=== PATIENT | female | born 1995 | race Caucasian/White ===

== ENCOUNTER → 2018-10-18 08:57 | Outpatient (CLI) | payer OTHER, SELFPAY ==
[2018-10-18 14:52] LABS: Anion Gap 8 (5-15); BUN 11 mg/dL (7-18); Calcium,Total 9.2 mg/dL (8.5-10.1); Chloride 110 mmol/L (98-107); Cholesterol 148 mg/dL (200); Creatinine, Serum 0.84 mg/dL (0.55-1.02); EST Glomerular Filtration Rate 88 mL/min (>60); Est Glom Filt Rate - Afr Amer 107 mL/min (>60); Glucose 84 mg/dL (74-106); High Density Lipoprotein 64 mg/dL; Potassium 4.5 mmol/L (3.5-5.1); Sodium Level 141 mmol/L (136-145); Thyroid Stim Hormone (TSH) 1.51 uIU/mL (0.358-3.74); Triglycerides 56 mg/dL; Very Low Density Lipoprotein 11 mg/dL (5-40)
== END ==
PROVIDERS: Family Provider Family Medicine; PCP Family Medicine; Referring Provider Family Medicine; Visit Provider Family Medicine
DX: Z00.00 Encounter for general adult medical examination without abnormal findings (principal); F32.9 Major depressive disorder, single episode, unspecified
CPT/HCPCS: 36415; 80048; 80061; 84443

== ENCOUNTER → 2018-10-23 10:28 | Outpatient (CLI) | payer OTHER, SELFPAY ==
[2018-10-23 09:59] VITALS: BMI 21.2
[2018-10-23 12:23] LABS: HIV - WCH Non-Reactive (Nonreactive)
[2018-10-23 18:24] LABS: Chlamydia Trachomatis by PCR Negative (Negative); Neisserai gonorrhoeae by PCR Negative (Negative); Probe Check PASS; Sample Adequacy Control PASS; Specimen Processing Control PASS
[2018-10-25 01:43] LABS: Rapid Plasmin Reagin (RPR) NONREACTIVE (NONREACTIVE)
[2018-10-25 03:06] LABS: HCV Quant. RNA PCR HCV Not Detected IU/mL (.)
[2018-10-25 11:11] LABS: HSV 2 IgG < 0.91 index (0.00-0.90)
[2018-10-25 11:47] LABS: HPV Reflexed? NOT INDICATED
== END ==
PROVIDERS: Family Provider Family Medicine; PCP Family Medicine; Referring Provider Nurse Practitioner Women's Health; Visit Provider Nurse Practitioner Women's Health
DX: Z12.4 Encounter for screening for malignant neoplasm of cervix (principal); Z11.3 Encounter for screening for infections with a predominantly sexual mode of transmission
CPT/HCPCS: 36415; 86592; 86695; 86696; 86703; 87491; 87522; 87591; 87624; 88175; G0145

== ENCOUNTER → 2018-11-08 08:20 | Outpatient (CLI) | payer OTHER, SELFPAY ==
[2018-10-23 09:59] VITALS: BMI 21.2
--- NOTE | 2018-11-08 08:23 | US_ITS ---
STUDY: ULTRASOUND TRANSVAGINAL CLINICAL: Female, 23 years old. MA x-ray A TECHNIQUE: Transvaginal COMPARISON: None. FINDINGS: Normal uterine size measuring 11.4 x 6.3 x 3.4 cm cm in maximal craniocaudal dimension. It is retroverted in position. There are no myometrial masses. Normal endometrial thickness measuring 4 mm. There are no endometrial masses, and there is no fluid in the endometrial cavity. Normal uterine cervix. Normal right ovary, measuring 3.6 x 3.7 x 2.4 with multiple follicles the largest measures 1.8 x 1.5 cm. Normal left ovary, measuring 3.9 x 2.6 x 1.5 cm. There are multiple follicles without a dominant cyst. There is trace free fluid in the cul-de-sac. US/Pelvic (Non ) IMPRESSION: Negative study Electronically Signed: Mayi Fragoso, at 13:37 EDT Tel , Service support ,
--- NOTE | 2018-11-08 08:23 | US_ITS ---
STUDY: ULTRASOUND TRANSVAGINAL CLINICAL: Female, 23 years old. MA x-ray A TECHNIQUE: Transvaginal COMPARISON: None. FINDINGS: Normal uterine size measuring 11.4 x 6.3 x 3.4 cm cm in maximal craniocaudal dimension. It is retroverted in position. There are no myometrial masses. Normal endometrial thickness measuring 4 mm. There are no endometrial masses, and there is no fluid in the endometrial cavity. Normal uterine cervix. Normal right ovary, measuring 3.6 x 3.7 x 2.4 with multiple follicles the largest measures 1.8 x 1.5 cm. Normal left ovary, measuring 3.9 x 2.6 x 1.5 cm. There are multiple follicles without a dominant cyst. There is trace free fluid in the cul-de-sac. US/Transvaginal Non- IMPRESSION: Negative study Electronically Signed: Mayi Ferrerstanton, at 13:37 EDT Tel , Service support ,
== END ==
PROVIDERS: Family Provider Family Medicine; PCP Family Medicine; Referring Provider Nurse Practitioner Women's Health; Visit Provider Nurse Practitioner Women's Health
DX: R10.2 Pelvic and perineal pain (principal)
CPT/HCPCS: 76830; 76856; 93976

== ENCOUNTER → 2018-12-06 11:24 | Outpatient (CLI) | payer OTHER, SELFPAY ==
[2018-11-20 10:57] VITALS: BMI 21.2
[2018-12-06 13:43] LABS: HIV - WCH Non-Reactive (Nonreactive)
[2018-12-06 14:31] LABS: Neisserai gonorrhoeae by PCR Negative (Negative); Probe Check PASS; Sample Adequacy Control PASS; Specimen Processing Control PASS
[2018-12-08 17:13] LABS: HSV 2 IgG < 0.91 index (0.00-0.90)
[2018-12-14 09:27] LABS: Rapid Plasmin Reagin (RPR) NONREACTIVE (NONREACTIVE)
== END ==
LOC: MFPLAB 11:25
PROVIDERS: Family Provider Family Medicine; PCP Family Medicine; Referring Provider Family Medicine; Visit Provider Family Medicine
DX: A64 Unspecified sexually transmitted disease (principal)
CPT/HCPCS: 36415; 86592; 86695; 86696; 86703; 87591

== ENCOUNTER 2019-01-09 09:50 | Day surgery (SDC) | payer OTHER, SELFPAY ==
[2018-11-20 10:57] VITALS: BMI 21.2
[2018-12-31 09:05] VITALS: BMI 21.2
--- NOTE | 2019-01-08 22:15 | PCM.HPOB.BLA ---
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 Chief Complaint: pre op diagnostic lap,cystoscopy,hysteroscopy D&C Charge Entry Required: No Is patient in pain?: No Allergies acetaminophen [From Vicodin] Allergy (Mild, Verified 12/31/18 08:30) nausea, vomiting hydrocodone [From Vicodin] Allergy (Mild, Verified 12/31/18 08:30) nausea, vomiting Medications bupropion HCl XL 300 mg 24 hr tablet, extended release 300 mg PO QAM 10/23/18 [History Confirmed 12/31/18] medroxyprogesterone 150 mg/mL intramuscular suspension 150 mg IM [id number] 10/23/18 [History Confirmed 12/31/18] Is last menstrual period known: No Post menopausal: No Patient : No : No [facility] Medical History Depression with anxiety (Acute) HPV test positive (Acute) Family History Grandfather Diabetes Brain cancer Social History (Updated 12/31/18 @ 09:24 by Lila Almazan MD) Smoking Status: Never smoker alcohol intake: current alcohol intake frequency: holidays/special occasions only substance use type: does not use caffeine: No what type of physical activity do you participate in: yoga, other details: hiking frequency: 3-4 times per week seatbelt use: always do you feel safe at home: Yes additional social history: Patient works at [employer] pre op soap and folder: Details: BINA BERNAL is a 23 year old who presents for chronic pelvic pain. she has struggled with severe dysmenorrhea. she has failed treatment with an OCP, IUD, Depoprovera, and nuvaring. she has never had any significant pain improvement with hormonal therapy, she has not tried depot lupron in the past. her pain started only on cycles and now is almost daily. she denies any family history of endometriosis. mood symptoms are well controlled. Female Reproductive History Cycle Length: 21-35 Bleeding Duration: 7 Pregancy History 0 Elective abortions Hx Para Spontaneous abortions Hx # Term Pregnancies Ectopic pregnancies Hx # Pregnancies Multiple births # of living children ROS Const Constitutional: Denies fatigue, fever(s), headache(s), increased appetite, poor appetite, weight gain or weight loss Cardio Card: Denies chest pain Resp Resp: Denies cough or dyspnea GI GI: Reports as per HPI; denies abdominal pain, constipation, nausea or vomiting : Reports as per HPI; denies difficulty urinating, painful urination, nipple discharge, urinary frequency, urinary incontinence, urinary hesitancy, urinary urgency, vaginal discharge, vaginal dryness, vaginal odor or vaginal itching Skin Skin/Breast: Denies change in hair, breast lump, breast pain, breast skin changes or nipple discharge Exam Const General: cooperative, healthy appearing, comfortable, no acute distress, well developed Nutritional Appearance: average body habitus Orientation: alert HENMT Head: normal to inspection, normocephalic Neck Neck: normal visual inspection, trachea midline Thyroid: thyroid normal Resp Effort & Inspection: normal respiratory effort GI Inspection: normal to inspection, non-distended Palpation: soft, no hepatosplenomegaly General: bladder normal to palpation External Female Exam: normal external appearance, normal appearance of the urethra Urethra: normal appearance of the urethra, normal palpation, no discharge Speculum Exam - Vagina: normal appearance of the vagina, normal vaginal discharge Speculum Exam - Cervix: normal appearance of the cervix, nontender Bimanual Exam- Vagina & Uterus: normal bimanual exam, uterine size normal, bladder normal to palpation, uterine shape normal, No cervical tenderness, uterine mobility abnormal, uterine consistency normal, normal cervical palpation, uterus fixed (retroverted) Bimanual Exam- Adnexa, other: normal adnexae, adnexae mobile, no adnexal masses, pelvic support normal Pelvic Support: normal Skin General: no rashes or lesions noted Assessment & Plan Problems 1. Dysmenorrhea N94.6 2. Chronic pelvic pain in female R10.2; G89.29 d and c hysteroscopy cystoscopy diagnostic laparoscopy Plan discussed surgical risks including risks of anesthesia, infection, bleeding, injury to bowel, bladder or blood vessels, and patient wishes to proceed with surgery. Coding Level of Care Code No Charge Diagnoses Dysmenorrhea N94.6 Chronic pelvic pain in female R10.2; G89.29
[2019-01-09] VITALS (8 sets, daily range): BP systolic 84–130; BP diastolic 63–89; PULSE 53–78; RESP 16–18; TEMP 36.3–36.8; O2SAT 97–100; BMI 19.5
[2019-01-09 10:21] LABS: Internal QC Validated? YES +Cl - CLEAR BKGD; Pregnancy, Urine Negative Negative
[2019-01-09 10:34] LABS: Hematocrit 44.9 % (37-47); Hemoglobin 14.2 g/dL (12.0-15.0); Mean Corp Hgb Conc 31.6 g/dL (32-36); Mean Corpuscular Hgb 28.6 pg (27.0-32.0); Mean Corpuscular Volume 90.5 fL (81-99); Mean Platelet Vol. 11.4 fl (6.2-12.0); Platelet Count 211 K/mm3 (150-450); RBC Distribution Width CV 12.9 % (11.6-14.6); RBC Distribution Width SD 42.6 fl (35.1-43.9); Red Blood Count 4.96 M/mm3 (4.2-5.4); White Blood Count 4.7 K/mm3 (4.4-11.0)
[2019-01-09] MEDS: Lactated Ringers 1,000 ML 125 ML IV ×2 (10:41→12:30)
[2019-01-09 10:42] LABS: Prothrombin Time (Protime)PT. 12.8 SECONDS (11.7-14.9)
[2019-01-09 10:43] LABS: Partial Thromboplast Time 30.5 Seconds (24.1-36.2)
[2019-01-09 10:50] LABS: AST(SGOT) 12 U/L (15-37); Alanine Aminotransfer ALT/SGPT 22 U/L (13-56); Albumin, Serum 4.1 g/dL (3.2-5.0); Alkaline Phosphatase 70 U/L (45-117); Bilirubin, Direct 0.14 mg/dL (0.00-0.30); Globulin 3.5 g/dL (2.2-4.2); Protein, Total 7.6 g/dL (6.4-8.2)
--- NOTE | 2019-01-09 11:00 | EMB_PTH ---
PATIENT: BINA BERNAL [place] [facility] [place][id number] AGE/SX: 23/F ROOM: RE01/09/[address]: Dr. Lila Almazan MD : 1995 BED: DIS: 01/09/2019 SPEC #: [id number] RECD: 01/09/19 16:37 STATUS: FEDERICO FELISA #: [id number] FAITH: 01/09/19 11:[address]: Lila Almazan DEPT: SURGICAL PATHOLOGY RECD BY: Ernesto Cope ENTERED: 01/10/19 10:01 SP TYPE: ENDOM BX/C OTHR DR: Dr. Tate Garcia MD Tissues: Endometrium, NOS Procedures: Surgery Specimen Level IV HEADER OPERATION: Laparoscopic ablation of endometriosis, chromotubation, hysteroscopy, D & C PRE-OP DIAGNOSIS: Dysmenorrhea N94.6, chronic pelvic pain R10.2, G89.29 TISSUE SUBMITTED: Endometrial curettings MICROSCOPIC DIAGNOSIS Endometrium, curettings: Weakly proliferative endometrium. Benign desquamative squamous epithelial cells. AM:godwin 01/14/19 COMMENT Case has been reviewed in consultation with Dr. Castrejon who concurs with the above diagnosis. IDC:WILLI MICROSCOPIC DESCRIPTION Slides are reviewed. GROSS DESCRIPTION Received in fixative is one container labeled with the patient's name and designated endometrial curettings. The specimen consists of multiple fragments of hemorrhagic soft tissue that in aggregate measure 2.5 x 2 x 0.2 cm. The entire specimen is submitted in one cassette. / SJ:godwin 01/10/19 TC:5 CPT: 49778
--- NOTE | 2019-01-09 13:02 | PCM.OPRPT ---
Problem List (1) Depression with anxiety Status: Acute (2) Dysmenorrhea Status: Acute (3) Positive test for human papillomavirus (HPV) Status: Acute (4) Chronic pelvic pain in female Status: Chronic Comment: d and c hysteroscopy cystoscopy diagnostic laparoscopy Report of Operation Date of Procedure: 01/09/19 Pre-Operative Diagnosis: chronic pelvic pain Post-Operative Diagnosis: same plus endometriosis Surgery/Procedure Performed:: Diagnostic laparoscopy with ablation of endometriosis chromotubation cystoscopy D&C hysteroscopy Description of Surgical Findings:: Endometriosis implants mostly chronic and old in the posterior cul-de-sac bilateral ovarian fossa right anterior cul-de-sac right and left fallopian tubes left pelvic sidewall with sigmoid colon to left pelvic sidewall adhesions physician allergist immunologist: Beulah Flores Type of Anesthesia:: General Special Medications: none Specimen's removed: emc Drains: kerr Estimated Blood Loss (mL): 25 Fluids Replaced: crystalloid Description of Procedure: Was taken the operating room and placed under general anesthesia was prepped and draped in the normal sterile fashion in dorsolithotomy position. Uterine manipulator was placed inside the uterus and umbilicus was injected with 1% lidocaine and 5 mm incision was made varies needle entered into the abdomen confirmed the intra-abdominal and abdomen was inflated with CO2 gas. Right and left lower quadrant ports were placed under direct visualization after intra-abdominal pathology was confirmed. Please see operative findings for additional details. Endometriosis implants were seen and were each progressively ablated using monopolar energy. The sigmoid colon to left pelvic sidewall adhesions were taken down sharply and with electrocautery using the monopolar scissors and blunt dissection. This restored normal anatomy and no other gross abnormality's were seen. Aries was placed over all these areas and excellent hemostasis was noted. Chromotubation was then performed to evaluate fallopian tube patency in both were seen to be patent and open no significant abnormalities. Attention was then paid to the vaginal portion of the procedure. All port sites were closed after all instruments removed from the abdomen the abdomen is desufflated of air. Hysteroscopy was performed and the lining of the uterus visualized and within normal limits. Sharp curettage was performed and specimen sent to pathology. Monsel's paste was placed on the anterior lip of the cervix to obtain excellent hemostasis. Cystoscopy was then performed by filling the bladder with sterile water and bilateral ureteral spray was noted no significant abnormalities were seen to the bladder lining or trauma or irregularities. All instruments removed from the patient and patient was awoken taken recovery in stable condition. Grafts/Implants Used: none - Complications none Multi Select Codes - Urinary/Genital Urinary/Genital CPT Codes: 89218 Cystoscopy, 18444 Reopen fallopian tube, 62362 Hysteroscopy, diagnostic, 77674 Lysis of adhesions, 82489 Ablation endometriosis
[2019-01-09] MEDS: Cefazolin 2 GM in 0.9% Normal Saline 100 ML IV (13:09)
[2019-01-09] MEDS: Bupivacaine 0.25% 30 ML Vial (14:30)
[2019-01-09] MEDS: FERRIC SUBSULFATE 8 GM SOLN (14:53)
--- NOTE | 2019-01-09 15:03 | DCINST_ITS ---
Discharge Diet: No Restrictions - Increase fluid intake for the next 48 hours. Discharge Activity: Return to Normal Activity, May Drive - when you are no longer taking narcotic pain medications., May Shower, May Take a Tub Bath - in 7 days May resume sexual activity in: 2 weeks Weight Bearing Status: Full weight bearing Additional Activity Instructions:: Ambulate often the next week after surgery. Nothing in the vagina for 5 days. Call your doctor if your incision/area has: Continuous Slow Oozing, Sudden Increased Bleeding, Increased Pain/ Swelling, Increased Redness, Foul Smelling Discharge Call your doctor if you observe: Fever of 101 or Higher Instructions: What Is Endometriosis?, Treating Endometriosis, Living with Endometriosis, Laparoscopic Treatment of Endometriosis Allergies/Adverse Reactions: Allergies hydrocodone [From Vicodin] Allergy (Mild, Verified 01/02/19 09:15) nausea, vomiting Medications to take at Discharge bupropion HCl XL 300 mg 24 hr tablet, extended release 300 mg PO QAM 10/23/18 Primary Care Physician: Tate Gacria MD [Primary Care Provider] - Test Results: Test results from this visit will be discussed in further detail at your follow- up appointment, if applicable. Please Follow Up With: Lila Almazan MD - [phone]
== END 2019-01-09 17:47 | disposition home or self-care (01) ==
LOC: SDC 10:00 → AC 10:00
PROVIDERS: Anesthesiology; Family Provider Family Medicine; PCP Family Medicine; Referring Provider Obstetrics & Gynecology; Visit Provider Obstetrics & Gynecology
PROC: (CPT 49320; principal; 2019-01-09 10:45)
PROC: 0UDB8ZZ Extraction of Endometrium, Via Natural or Artificial Opening Endoscopic (ICD-10-PCS; CPT 58558; 2019-01-09 10:45)
PROC: 0TJB8ZZ Inspection of Bladder, Via Natural or Artificial Opening Endoscopic (ICD-10-PCS; CPT 52000; 2019-01-09 10:45)
DX: N80.1 Endometriosis of ovary (principal); N80.3 Endometriosis of pelvic peritoneum; N94.6 Dysmenorrhea, unspecified; R10.2 Pelvic and perineal pain; G89.29 Other chronic pain; F32.9 Major depressive disorder, single episode, unspecified; F41.9 Anxiety disorder, unspecified; Z79.899 Other long term (current) drug therapy; Z88.5 Allergy status to narcotic agent
CPT/HCPCS: 58350; 58558; 58662; 36415; 80076; 81025; 85027; 85610; 85730; 86850; 86900; 86901; 88305; J7120; J2405; Q9968

== ENCOUNTER → 2019-03-03 15:24 | Outpatient (CLI) | payer OTHER, SELFPAY ==
[2019-02-25 11:27] VITALS: BMI 19.5
[2019-03-03 17:35] LABS: Absolute Lymphocyte Count 1.39 X10^3/uL (0.83-4.51); Absolute Neutrophil Count 4.5 X10^3/uL (2.0-7.7); Basophil# 0.03 X10^3/uL; Basophil% 0.5 % (0-1); Eosinophil# 0.05 X10^3/uL; Eosinophils% 0.8 % (0-5); Hematocrit 41.5 % (37-47); Hemoglobin 12.9 g/dL (12.0-15.0); Lymphocyte # 1.39 X10^3/ul (4.0); Lymphocyte % 21.1 % (19-41); Mean Corp Hgb Conc 31.1 g/dL (32-36); Mean Corpuscular Hgb 27.8 pg (27.0-32.0); Mean Corpuscular Volume 89.4 fL (81-99); Mean Platelet Vol. 11.8 fl (6.2-12.0); Monocyte# 0.58 X10^3/uL; Monocyte% 8.8 % (0-10); NRBC Flagged by Analyzer 0 % (0-5); Neutrophil % 68.3 % (47-70); Platelet Count 251 K/mm3 (150-450); RBC Distribution Width CV 13.4 % (11.6-14.6); RBC Distribution Width SD 43.6 fl (35.1-43.9); Red Blood Count 4.64 M/mm3 (4.2-5.4); White Blood Count 6.6 K/mm3 (4.4-11.0)
[2019-03-03 17:44] LABS: Anion Gap 7 (5-15); BUN 12 mg/dL (7-18); BUN/Creat Ratio 11.9 RATIO (10-20); Calcium,Total 9.3 mg/dL (8.5-10.1); Chloride 108 mmol/L (98-107); Creatinine, Serum 1.01 mg/dL (0.55-1.02); EST Glomerular Filtration Rate 71 mL/min (>60); Est Glom Filt Rate - Afr Amer 86 mL/min (>60); Glucose 100 mg/dL (74-106); Magnesium 2.5 mg/dL (1.6-2.6); Potassium 4.1 mmol/L (3.5-5.1); Sodium Level 141 mmol/L (136-145)
== END ==
PROVIDERS: Family Provider Family Medicine; PCP Family Medicine; Referring Provider Family Medicine; Visit Provider Family Medicine
DX: R19.7 Diarrhea, unspecified (principal); R19.5 Other fecal abnormalities
CPT/HCPCS: 36415; 80048; 83735; 85025; 87177; 87209; 87493; 87506

== ENCOUNTER 2019-03-20 05:18 | Day surgery (SDC) | payer OTHER, SELFPAY ==
[2019-03-06 07:59] VITALS: BMI 19.5
--- NOTE | 2019-03-06 08:07 | HP_ITS ---
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 Is patient in pain?: Yes (Lower abdomen) Pain scale (1-10): 5 Allergies hydrocodone [From Vicodin] Allergy (Mild, Verified 03/06/19 08:01) nausea, vomiting Medications bupropion HCl XL 300 mg 24 hr tablet, extended release 300 mg PO QAM 10/23/18 [History Confirmed 03/06/19] levonorgestrel 0.15 mg-ethinyl estradiol 0.03 mg tablet 1 tab PO DAILY #84 tab 02/25/19 [Rx Confirmed 03/06/19] naproxen 500 mg tablet 500 mg PO Q12H #30 tab 02/25/19 [Rx Confirmed 03/06/19] [facility] Medical History (Updated 03/06/19 @ 08:04 by Zaire Anderson MD) Stool guaiac positive (Acute) Black tarry stools (Acute) Ulcer (Acute) Acid reflux (Acute) Blood in stool (Acute) Constipation (Acute) Diarrhea (Acute) Nausea (Acute) Lower abdominal pain (Acute) Fatigue (Acute) URI (upper respiratory infection) (Acute) Bronchitis (Acute) Dysmenorrhea (Acute) Chronic pelvic pain in female (Chronic) Positive test for human papillomavirus (HPV) (Acute) Depression with anxiety (Acute) HPV test positive (Acute) Surgical History (Updated 03/06/19 @ 07:57 by Sandra Smith) History of endometrial ablation (Acute) Hx of cystoscopy (Acute) History of hysteroscopy (Acute) Hx of dilation and curettage (Acute) Endometriosis determined by laparoscopy (Acute) Endometriosis determined by laparoscopy (Acute) Family History (Updated 10/23/18 @ 09:58 by Debby Escobar) Grandfather Diabetes Brain cancer Social History (Updated 03/06/19 @ 08:07 by Zaire nAderson MD) Smoking Status: Never smoker alcohol intake: current alcohol intake frequency: holidays/special occasions only substance use type: does not use caffeine: No what type of physical activity do you participate in: yoga, other details: hiking frequency: 3-4 times per week seatbelt use: always do you feel safe at home: Yes additional social history: Patient works at [employer] HPI HPI: BINA BERNAL, is a 23 F who presents to the office today for HPI HPI Surgical H&P: Yes HPI: BINA BERNAL, is a 23 F who presents to the office today for surgical consultation regarding low abdominal pain cramping bloating as well as an episode of dark stool which was detected to being Hemoccult positive. The patient is referred by Dr. Lowell Long and a written copy of my surgical consult and recommendations will return to him. The patient has had a lot of stress over the past couple months. She just underwent a divorce. She has been having diffuse abdominal pain and cramping. Over this past weekend 4 days ago she had some looser very dark stool. On March 03 enteric pathogens were not detected. C. difficile was negative. Her white blood cell count was 6.6 with a hemoglobin 12.9 hematocrit 41.5 and platelet count 251,000. BUN 12 and creatinine 1.01. It is of note that December [address] Lila Almazan performed a diagnostic laparoscopy with ablation of endometriosis and chromotubation intubation and cystoscopy D&C and hysteroscopy. The patient states that her weight has been variable with some weight loss secondary to the stress. She has been placed on some antidepressants. She states that approximately April 2018 she had episode severe nausea and vomiting at that time was diagnosis potential peptic ulcer disease. No endoscopy was performed at that time. She has not been on any acid reducing medication. She is not aware of any family history of peptic ulcer disease or colonic disease. She states that currently she is not noticing any bright red blood per rectum or melena. She does however complain of low mid abdominal pain mostly in the suprapubic area. She states that there was a heavy concentration of endometriosis at that location. She works as a c d area supervisor. She states that she imbibes alcohol infrequently. She does not utilize tobacco. ROS General General: Yes weight change and fatigue; no appetite, colon cancer, breast cancer or weakness HEENT HEENT: No difficulty swallowing, eye injury, eye surgery, swollen glands or hoarseness Skin Skin: No rash or changing moles Musc Musculoskeletal: No back problems, arthritis, rheumatoid arthritis, gout or joint pain Cardio Cardiovascular: No murmur, pacemaker, heart disease, atrial fibrillation, high blood pressure, heart attack, heart stent, palpitations, shortness of breat with exertion or chest pain Psych Psychiatric: Yes depression and anxiety; no hearing voices Resp Respiratory: No shortness of breath, No sleep apnea, No cough, No COPD, No asthma, No emphysema, No wheezing Gastro Gastrointestinal: Yes abdominal pain, Yes nausea or vomiting, Yes diarrhea, Yes constipation, Yes blood in stool, Yes acid reflux, No hemorrhoids, Yes ulcers, No gallbladder problem, Yes black,tarry stools [place] Hematologic: No blood thinners, No blood disorders, No bleeding, No anemia, No blood clots Neuro Neurologic: No system reviewed and no additional complaints, except as docu, No as per HPI, No abnormal walking, No abnormal hearing, No abnormal movements, No abnormal speech, No behavioral changes, No burning sensations, No confusion, No seizure-like activity, No unsteadiness, No dizziness, No localized weakness, No frequent falls, No headache(s), No lack of coordination, No loss of vision, No memory loss, No numbness, No other visual disturbances, No radiating pain, No restless legs, No sensory deficit, No fainting, No tingling, No tremor(s), No weakness, No other Exam Const General: cooperative, comfortable, anxious Nutritional Appearance: underweight Orientation: alert, awake [facility] Head: normal to inspection Resp Effort & Inspection: normal respiratory effort Auscultation: clear to auscultation bilaterally Cardio Rate: regular rate Rhythm: regular rhythm Heart Sounds: no murmurs GI Palpation: soft, no hepatosplenomegaly Auscultation: normal bowel sounds Skin General: no rashes or lesions noted Neuro Cognition: normal cognition Extrem General: no calf tenderness bilaterally Psych Mood: anxious mood Assessment & Plan Problems 1. Lower abdominal pain R10.30 2. Stool guaiac positive R19.5 3. Diarrhea, unspecified type R19.7 Plan 23-year-old female with Hemoccult positive stool and symptoms suggesting melanotic stool with diffuse abdominal pain concentrated in the low abdomen. Previous history of nausea and vomiting suspected possible peptic ulcer disease. I am recommending the patient a combined esophagogastroduodenoscopy with possible biopsy and colonoscopy with possible biopsy or polypectomy as indicated. Very careful inspection for potential source of blood loss or pain will be pursued. I will consider biopsies for H. pylori and potentially even random colonic biopsies. The patient is aware of the technique, benefits, risks, alternatives. She is on hormonal manipulation for her endometriosis and has been so for the past 2 months. She has not noticed a significant change. As noted above patient currently is under extreme amount of stress secondary to her recent divorce. CC: Dr. Lila Almazan and Dr Lowell Long and Dr. Tate Anderson M.D., F.A.C.S. Coding Level of Care Code 36151 Diagnoses Lower abdominal pain R10.30 Stool guaiac positive R19.5 Diarrhea, unspecified type R19.7 ??Diarrhea type: unspecified type 03/06/19 0807 <Electronically signed by Zaire cisneros MD> Date _ Zaire Anderson MD I have re-examined the patient. There are no clinical changes since date of exam.
[2019-03-20] VITALS (7 sets, daily range): BP systolic 103–123; BP diastolic 45–79; PULSE 16–82; RESP 16; TEMP 23.8–37; O2SAT 100; BMI 20.8
--- NOTE | 2019-03-20 | IMM_PTH ---
PATIENT: BINA BERNAL LOC: [place] U#:[id number] AGE/SX: 23/F ROOM: RE03/20/[address]: Dr. Zaire Anderson MD : 1995 BED: DIS: 03/20/2019 SPEC #: [id number] RECD: 03/21/19 11:01 STATUS: FEDERICO FELISA #: [id number] FAITH: 03/20/19 00:[address]: Zaire Anderson DEPT: IMMUNOHISTOCHEMISTRY RECD BY: Nadira Loo ENTERED: 03/21/19 11:02 SP TYPE: IMMUNO OTHR DR: Dr. Tate Garcia MD Tissues: B - Stomach, NOS C - Stomach, NOS Procedures: H Pylori (initial) PHYSICIAN & INSTITUTION [place] [address] SPECIMEN INFORMATION: Tissue Source: B - Antrum biopsy, C - Fundus biopsy Clinical Info: Lower abdomen pain, guaiac positive stool, diarrhea Specimen Number: [id number] B & C CPT code: 08154 x2 METHODOLOGY: Deparaffinized sections of prefer/formalin-fixed tissue or PAP/DQ stained slides are incubated with monoclonal/polyclonal antibodies/oligonucleotide probes. Localization is made via biotin free immunoperoxidase method. Appropriate controls are performed and reacted as expected. Results on target cell population are indicated in the following table: RESULTS: ANTIBODY / CLONE RESULT Block B H Pylori (polyclonal) negative Block C H Pylori (polyclonal) negative These tests were developed and their performance characteristics determined by [facility]. They may not have been cleared or approved by the U.[place]. Food and Drug Administration. The FDA has determined that such clearance or approval is not necessary. The above immunohistochemical/dualISH markers are ordered and reviewed by the Pathologist. INTERPRETATION: B. Antrum biopsy: Negative for Helicobacter pylori organisms. C. Fundus biopsy: Negative for Helicobacter pylori organisms. SJ:godwin 03/21/19
[2019-03-20 05:52] LABS: Internal QC Validated? YES +Cl - CLEAR BKGD; Pregnancy, Urine Negative Negative
[2019-03-20] MEDS: Lactated Ringers 1,000 ML 100 ML IV (05:55)
--- NOTE | 2019-03-20 06:30 | EGD_PTH ---
PATIENT: BINA BERNAL LOC: EN U#:[id number] AGE/SX: 23/F ROOM: RE03/20/[address]: Dr. Zaire Anderson MD : 1995 BED: DIS: 03/20/2019 SPEC #: [id number] RECD: 03/20/19 08:33 STATUS: FEDERICO FELISA #: [id number] FAITH: 03/20/19 06:[address]: Zaire Anderson DEPT: SURGICAL PATHOLOGY RECD BY: Ernesto Cope ENTERED: 03/20/19 09:26 SP TYPE: EGD BIOPSY OT DR: Dr. Tate Garcia MD Tissues: A - Duodenum, NOS B - Gastric mucous membrane C - Stomach, NOS D - Esophageal mucous membrane E - COLON BIOPSY Procedures: Special Stain Group II Surgery Specimen Level IV Alcian Blue/PAS (control) HEADER OPERATION: Colonoscopy, EGD ([facility] [place]) PRE-OP DIAGNOSIS: Lower abdomen pain, guaiac positive stool, diarrhea TISSUE SUBMITTED: A - Duodenal biopsy, B - Antrum biopsy, C - Fundus biopsy, D - Distal esophagus biopsy, E - Random colonic biopsy MICROSCOPIC DIAGNOSIS A. Duodenal biopsy: A fragment of duodenal mucosa, no pathologic diagnosis. B. Antrum, biopsy: Mild gastritis. See microscopic description and comment. C. Fundus, biopsy: Mild gastritis. A minute lymphoid aggregate, favor benign. See microscopic description and comment. D. Distal esophagus, biopsy: Fragments of gastroesophageal mucosa with mild to moderate chronic inflammation. Intestinal metaplasia (goblet cell metaplasia) is not identified. See comment. E. Colon, random biopsy: Fragments of colonic mucosa, no pathologic diagnosis. SJ:rg 03/21/19 COMMENT B & C. The results of immunohistochemistry for Helicobacter pylori will be reported separately ([id number]). D. Alcian blue/PAS stain with matched control is used in the evaluation of the specimen. MICROSCOPIC DESCRIPTION Slides are reviewed. B. The specimen shows fragments of gastric mucosa with chronic inflammatory cell infiltrates in the lamina propria consisting of lymphocytes and plasma cells, consistent with mild chronic gastritis. C. The specimen shows fragments of gastric mucosa with chronic inflammatory cell infiltrates in the lamina propria consisting of lymphocytes and plasma cells, consistent with mild chronic gastritis. A minute lymphoid aggregate is also noted, favor benign. GROSS DESCRIPTION A - Received in fixative is one container labeled with the patient's name and designated duodenal biopsy. The specimen consists of one irregular fragment of light davis soft tissue that measures 0.5 x 0.3 x 0.1 cm. The specimen is totally submitted in one cassette. B - Received in fixative is one container labeled with the patient's name and designated antral biopsy. The specimen consists of one irregular fragment of light davis soft tissue that measures 0.5 x 0.3 x 0.1 cm. The specimen is totally submitted in one cassette. C - Received in fixative is one container labeled with the patient's name and designated fundus biopsy. The specimen consists of two irregular fragments of light davis soft tissue that in aggregate measure 0.8 x 0.3 x 0.1 cm. The specimen is totally submitted in one cassette. D - Received in fixative is one container labeled with the patient's name and designated distal esophagus biopsy. The specimen consists of two irregular fragments of light davsi soft tissue that in aggregate measure 0.6 x 0.3 x 0.1 cm. The specimen is totally submitted in one cassette. E - Received in fixative is one container labeled with the patient's name and designated random colonic biopsy. The specimen consists of multiple irregular fragments of light davis soft tissue that in aggregate measure 1.5 x 0.5 x 0.1 cm. The specimen is totally submitted in one cassette. / SJ:rg 03/20/19 TC:3 [facility]: [id number] [phone], [id number]
--- NOTE | 2019-03-20 07:07 | OP.ENDO_ITS ---
03/20/2019 Tate Garcia MD [address] [place] [address] Re : Upper GI endoscopy procedure for Ayaka Hargrove Dear Dr. Garcia This procedure was performed on March. My impressions and recommendations are as follows: Impressions : - LA Grade A reflux esophagitis. Biopsied. - Z-line variable, 42 cm from the incisors. - Small hiatal hernia. - Red blood in the gastric fundus. Biopsied. - Normal antrum. Biopsied. - Normal examined duodenum. Biopsied. Recommendations : - Discharge patient to home. - Resume previous diet. - Continue present medications. - Use Prilosec (omeprazole) 40 mg PO daily. - Telephone my office for pathology results in 1 week. My findings are described in the full procedure note, which is enclosed. If I can be of further assistance, please feel free to contact me at Doctor phone number(s): Work: . Sincerely, Zaire Anderson MD 03/20/2019 7:06:47 AM This report has been signed electronically.
--- NOTE | 2019-03-20 07:10 | OP.ENDO_ITS ---
03/20/2019 Tate Garcia MD [address] [place] [address] Re : Colonoscopy procedure for Ayaka Hargrove Dear Dr. Garcia This procedure was performed on March. My impressions and recommendations are as follows: Impressions : - The entire examined colon is normal. Biopsied. Recommendations : - Discharge patient to home. - Resume previous diet. - Continue present medications. Call office in one week for pathology results if not already contacted - Repeat colonoscopy at age 49 for screening purposes. My findings are described in the full procedure note, which is enclosed. If I can be of further assistance, please feel free to contact me at Doctor phone number(s): Work: . Sincerely, Zaire Anderson MD 03/20/2019 7:09:47 AM This report has been signed electronically.
== END 2019-03-20 08:00 | disposition home or self-care (01) ==
LOC: EN 05:18 → AC 05:19
PROVIDERS: Anesthesiology; Family Provider Family Medicine; PCP Family Medicine; Referring Provider Family Medicine; Visit Provider Surgery
PROC: 0DJD8ZZ Inspection of Lower Intestinal Tract, Via Natural or Artificial Opening Endoscopic (ICD-10-PCS; CPT 45378; principal; 2019-03-20 06:25)
DX: K21.0 Gastro-esophageal reflux disease with esophagitis (principal); K29.71 Gastritis, unspecified, with bleeding; K44.9 Diaphragmatic hernia without obstruction or gangrene; R10.84 Generalized abdominal pain; R19.5 Other fecal abnormalities; R19.7 Diarrhea, unspecified; R63.6 Underweight; Z68.1 Body mass index [BMI] 19.9 or less, adult; F32.9 Major depressive disorder, single episode, unspecified; F41.9 Anxiety disorder, unspecified
CPT/HCPCS: 43239; 45380; 81025; 88305; 88313; 88342; J7120; J2405